=== PATIENT | female | born 1990 | race Two or more races ===

== ENCOUNTER 2024-10-13 09:32 | Outpatient (REF) | payer OTHER, SELFPAY ==
--- NOTE | ~2024-10-13 | US_ITS ---
EXAMINATION: US PELVIS CLINICAL INFORMATION: Dysmenorrhea. COMPARISON: None available. TECHNIQUE: Ultrasound of the pelvis is performed using both transabdominal and transvaginal transducers along with Doppler. Transvaginal imaging is performed due to inadequate visualization transabdominally. FINDINGS: Uterus: The uterus is anteverted and measures 8.6 x 4 x 6.8 cm. The double wall endometrial thickness is 1.6 centimeters. IUD in the endometrial cavity in good position.. The uterus is smooth in contour and has normal myometrial echogenicity. No visible fibroid. Adnexa: Both ovaries are visualized. There is normal color flow to the adnexa. There is no ovarian torsion. There is no pelvic ascites or fluid collection. Right ovary measures 2.8 x 2.3 x 1.7 cm. Volume 5.7 mL Left ovary measures 3.6 x 2.3 x 2.2 cm. Volume 95 mL US/US pelvic and transvaginal IMPRESSION: Normal ultrasound of pelvis. IUD in good position in the endometrial cavity. Electronically signed by: Rich Rush MD 10/13/2024 04:03 PM [facility] SOLORIO
== END 2024-10-13 09:33 | disposition home or self-care (01) ==
LOC: HO.UMASIMG 09:32
PROVIDERS: Visit Provider Family Medicine
DX: N94.6 Dysmenorrhea, unspecified (principal)
CPT/HCPCS: 76830; 76856